=== PATIENT | male | born 1945 | race Caucasian/White ===

== ENCOUNTER → 2016-11-17 | Outpatient (CLI) | payer OTHER | LOC: FLAB 12:35 | PROVIDERS: ATTEND Family Medicine | DX: R05 Cough (principal); I25.10 Atherosclerotic heart disease of native coronary artery without angina pectoris ==

== ENCOUNTER 2017-06-04 07:52 | Emergency (ER) | payer OTHER ==
--- NOTE | 2017-06-04 08:23 | EDPHY ---
General Narrative: CHIEF COMPLAINT: Cold, shaking, weakness HISTORY OF PRESENT ILLNESS: Patient complains of sudden onset of feeling cold, shaking and weakness. This started abruptly around 4:30 a.m.. It woke him from sleep. It lasted for several minutes and has improved. He had no chest pain during this. He did have some shortness of breath. He has had a cough and runny nose this week. No new abdominal pain for the patient. No urinary complaints. No constipation. No diarrhea. No bloody stools or emesis. No trauma or injury. No headache. Did not taking medications for this. No other associated complaints or modifying factors. REVIEW OF SYSTEMS: Ten systems reviewed and are negative unless otherwise noted in the HPI PCP: Dr. Stoddard SPECIALISTS: Dr. Roxanne Velasquez PAST MEDICAL HISTORY: AFib, CAD, dyslipidemia, GERD PAST SURGICAL HISTORY: PCI with stent placement, endoscopy, partial gastrectomy with bypass SOCIAL HISTORY: Nonsmoker. No alcohol use. Retired. Lives independently with his spouse FAMILY HISTORY: Noncontributory EXAMINATION General Appearance: Alert, no distress. No tremor shaking Head: normocephalic, atraumatic Eyes: Pupils equal and round, no conjunctival pallor or injection ENT, Mouth: Mucous membranes moist. Airway is widely patent. No erythema or edema. Neck: Normal inspection, supple, non-tender. Midline trachea. Respiratory: Mild rhonchi. No wheezing. No crackles. No diminishment. No retractions or distress Cardiovascular: Regular rate and rhythm. Low-grade systolic murmur. Gastrointestinal: Abdomen is soft and nontender. No tympany. No rigidity. Nonacute abdomen. Back: non-tender, no bony abnormalities Neurological: A&O, nonfocal, normal gait. Strength symmetric Skin: Warm and dry, no rash. No petechiae or purpura. No cellulitis. Extremities: Nontender, no pedal edema Psychiatric: Mood and affect normal DIFFERENTIAL DIAGNOSES: Including but not limited to pneumonia, influenza, urinary tract infection, weakness, dehydration MDM: 8:20 a.m. Shaking, weakness and chills with no clear etiology. Patient's vital signs are within normal limits. He is not tachycardic, tachypneic or febrile. He is not hypoxic. He does report recent cough and runny nose throughout the week. I have ordered laboratory studies, influenza test, EKG due to weakness. Chest x- ray has also been ordered to rule out pneumonia. He is in no acute distress. 8:50 a.m. Case discussed with Dr. Herrera. 9:30 a.m. Laboratories thus far suggest viral etiology. There is no leukocytosis. Chest x-ray as read by me reveals no definite pneumonia. Influenza test is pending. 10:10 a.m. Patient re-evaluated. Resting comfortably in no acute distress. Vital signs remained stable. I discussed laboratory studies. 10:15 a.m. Chest x-ray has been read as negative by radiologist. Still awaiting a urine sample from the patient 11:25 a.m. UA is negative. Patient re-evaluated. He is resting comfortably in no acute distress. Vital signs remained stable. Given the sudden shaking chill, there is concern for the possibility of early pneumonia, although this is not yet appreciated on chest x-ray. This clinically can lag. I discussed outpatient therapy with empiric coverage with Augmentin and doxycycline. Given his use of sotalol, I want to avoid macrolides and fluoroquinolones. I discussed this medication combination with the pharmacist and they agree that there is no concern for QT prolongation. I discussed this with the patient, and he and his spouse are comfortable with this plan. He is discharged home stable condition. SUPERVISION: Patient was independently examined, but I discussed the case with my secondary supervising physician Dr. Herrera - Diagnostics Imaging Results: Imaging Impressions Chest X-Ray 06/04/17 08:23 Impression: No acute findings in the chest. - History Smoking Status: Former smoker - Objective Vital Signs: Initial Vital Signs Temperature (C) 98.1 F 06/04/17 07:55 Heart Rate 97 06/04/17 07:55 Respiratory Rate 16 06/04/17 07:55 Blood Pressure 133/86 H 06/04/17 07:55 O2 Delivery Mode Room Air Allergies/Adverse Reactions: No Known Allergies Allergy (Unverified 06/04/17 08:04) Home Medications: Medication Instructions Recorded Cholecalciferol Vit D3 [Vitamin D3 2,000 units PO DAILY 04/14/11 2000 units] Folic Acid 0.8 mg PO DAILY 04/14/11 Hydrocortisone 1% [Hydrocortisone 1 emilie TP DAILY PRN 04/14/11 1% cream (*)] Tretinoin [RETIN-A] 1 emilie TP DAILY 04/14/11 Dabigatran Etexilate Mesyl 150 mg PO BID 05/09/13 [Pradaxa 150 MG (*)] Lovastatin 20 mg PO DAILY 05/09/13 [place]-3 Fatty Acids [Fish Oil 1000 2,000 mg PO DAILY 05/09/13 mg (*)] metroNIDAZOLE 1% [Noritate 1% Cr 1 emilie TP DAILY 05/09/13 (RX)] Clopidogrel Bisulfate [Clopidogrel] 75 mg PO DAILY 12/11/13 Herbals/Supplements -Info Only 1 ea PO DAILY 12/11/13 Multivitamins [Multivitamin (*)] 1 each PO Q2D 12/11/13 Aspirin 81 mg PO DAILY 01/15/16 Fluorometholone 01/15/16 Sotalol HCl [Betapace 80 MG (*)] 160 mg PO BID 01/15/16 Amoxicillin/Clavulanate Pot 875 mg PO BID #14 tab 06/04/17 [Augmentin 875 MG TAB (*)] Doxycycline Hyclate 100 mg PO BID #14 tablet 06/04/17 Laboratory Results: Laboratory Results 06/04/17 08:50 06/04/17 08:50 06/04/17 06/04/17 06/04/17 10:49 09:09 08:50 WBC RBC Hgb Hct MCV MCH MCHC RDW Plt Count MPV Neut % (Auto) Lymph % (Auto) [place] % (Auto) Eos % (Auto) Baso % (Auto) Nucleat RBC Rel Count Absolute Neuts (auto) Absolute Lymphs (auto) Absolute Monos (auto) Absolute Eos (auto) Absolute Basos (auto) Absolute Nucleated RBC Immature Gran % Immature Gran # PT INR APTT Sodium 147 mEq/L H mEq/L (134-144) Potassium 4.5 mEq/L mEq/L (3.5-5.2) Chloride 110 mEq/L mEq/L (97-110) Carbon Dioxide 19 mEq/l L mEq/l (22-31) Anion Gap 18 mEq/L H mEq/L (8-16) BUN 33 mg/dL H mg/dL (7-23) Creatinine 1.1 mg/dL mg/dL (0.7-1.3) Estimated GFR > 60 Glucose 139 mg/dL H mg/dL (70-100) Calcium 10.5 mg/dL H mg/dL (8.5-10.4) Total Bilirubin 1.0 mg/dL mg/dL (0.1-1.4) Conjugated Bilirubin 0.3 mg/dL mg/dL (0.0-0.5) Unconjugated Bilirubin 0.7 mg/dL mg/dL (0.0-1.1) AST 28 IU/L IU/L (17-59) ALT 35 IU/L IU/L (21-72) Alkaline Phosphatase 68 IU/L IU/L (38-126) Total Protein 7.8 g/dL g/dL (6.3-8.2) Albumin 4.5 g/dL g/dL (3.5-5.0) Lipase 67 IU/L IU/L (23-300) Urine Color YELLOW Urine Appearance CLEAR Urine pH 5.0 (5.0-7.5) Ur Specific [place] 1.015 (1.002-1.030) Urine Protein NEGATIVE (NEGATIVE) Urine Ketones NEGATIVE (NEGATIVE) Urine Blood NEGATIVE (NEGATIVE) Urine Nitrate NEGATIVE (NEGATIVE) Urine Bilirubin NEGATIVE (NEGATIVE) Urine Urobilinogen NEGATIVE EU EU (0.2-1.0) Ur Leukocyte Esterase NEGATIVE (NEGATIVE) Urine RBC NONE SEEN /hpf /hpf (0-3) Urine WBC 1-3 /hpf /hpf (0-3) Ur Epithelial Cells NONE SEEN /lpf /lpf (NONE-1+) Urine Mucus TRACE /lpf /lpf (NONE-1+) Urine Glucose NEGATIVE (NEGATIVE) Nasal Influenza A PCR NEGATIVE FOR FLU A (NEGATIVE) Nasal Influenza B PCR NEGATIVE FOR FLU B (NEGATIVE) 06/04/17 06/04/17 08:50 08:50 WBC 5.63 10^3/uL 10^3/uL (3.80-9.50) RBC 4.37 10^6/uL L 10^6/uL (4.40-6.38) Hgb 15.7 g/dL g/dL (13.7-17.5) Hct 42.8 % % (40.0-51.0) MCV 97.9 fL fL (81.5-99.8) MCH 35.9 pg H pg (27.9-34.1) MCHC 36.7 g/dL g/dL (32.4-36.7) RDW 12.7 % % (11.5-15.2) Plt Count 141 10^3/uL L 10^3/uL (150-400) MPV 10.7 fL fL (8.7-11.7) Neut % (Auto) 87.4 % H % (39.3-74.2) Lymph % (Auto) 8.5 % L % (15.0-45.0) [place] % (Auto) 1.1 % L % (4.5-13.0) Eos % (Auto) 1.8 % % (0.6-7.6) Baso % (Auto) 0.5 % % (0.3-1.7) Nucleat RBC Rel Count 0.0 % % (0.0-0.2) Absolute Neuts (auto) 4.92 10^3/uL 10^3/uL (1.70-6.50) Absolute Lymphs (auto) 0.48 10^3/uL L 10^3/uL (1.00-3.00) Absolute Monos (auto) 0.06 10^3/uL L 10^3/uL (0.30-0.80) Absolute Eos (auto) 0.10 10^3/uL 10^3/uL (0.03-0.40) Absolute Basos (auto) 0.03 10^3/uL 10^3/uL (0.02-0.10) Absolute Nucleated RBC 0.00 10^3/uL 10^3/uL (0-0.01) Immature Gran % 0.7 % % (0.0-1.1) Immature Gran # 0.04 10^3/uL 10^3/uL (0.00-0.10) PT 18.3 SEC H SEC (12.0-15.0) INR 1.50 H (0.83-1.16) APTT 34.9 SEC SEC (23.0-38.0) Sodium Potassium Chloride Carbon Dioxide Anion Gap BUN Creatinine Estimated GFR Glucose Calcium Total Bilirubin Conjugated Bilirubin Unconjugated Bilirubin AST ALT Alkaline Phosphatase Total Protein Albumin Lipase Urine Color Urine Appearance Urine pH Ur Specific [place] Urine Protein Urine Ketones Urine Blood Urine Nitrate Urine Bilirubin Urine Urobilinogen Ur Leukocyte Esterase Urine RBC Urine WBC Ur Epithelial Cells Urine Mucus Urine Glucose Nasal Influenza A PCR Nasal Influenza B PCR Departure - Departure Disposition: Home, Routine, Self-Care Clinical Impression: Cough Condition: Good Instructions: Acute Bronchitis (ED), Acute Cough (ED) Additional Instructions: 1. Medications as prescribed to completion 2. Contact primary care physician Tuesday morning for outpatient follow-up 3. ED precautions as discussed Referrals: NARDA STODDARD [Primary Care Provider] - As per Instructions Prescriptions: Amoxicillin/Clavulanate Pot [Augmentin 875 MG TAB (*)] 875 mg PO BID #14 tab Doxycycline Hyclate 100 mg PO BID #14 tablet
[2017-06-04 09:00] LABS: % IMMATURE GRANULYOCYTES 0.7 % (0.0-1.1); ABSOLUTE IMMATURE GRANULOCYTES 0.04 10^3/uL (0.00-0.10); ADD DIFF? NO; ADD MORPH? NO; ADD SCAN? NO; ATYPICAL LYMPHOCYTE FLAG 0 (0-99); FRAGMENT RBC FLAG 0 (0-99); HEMATOCRIT 42.8 % (40.0-51.0); HEMOGLOBIN 15.7 g/dL (13.7-17.5); LEFT SHIFT FLG 0 (0-99); LIPEMIA HEMOLYSIS FLAG 90 (0-99); MEAN CELL HEMOGLOBIN 35.9 pg (27.9-34.1); MEAN CELL HEMOGLOBIN CONCENTR. 36.7 g/dL (32.4-36.7); MEAN CELL VOLUME 97.9 fL (81.5-99.8); MEAN PLATELET VOLUME 10.7 fL (8.7-11.7); PLATELET CLUMPS FLAG 0 (0-99); PLATELET COUNT 141 10^3/uL (150-400); RED BLOOD CELL COUNT 4.37 10^6/uL (4.40-6.38); RED CELL DISTRIBUTION WIDTH 12.7 % (11.5-15.2)
--- NOTE | 2017-06-04 09:01 | CPEKG ---
Heart Rate: 85 RR Interval: 706 P-R Interval: 164 QRSD Interval: 96 QT Interval: 384 QTC Interval: 457 P [place]: 74 QRS [place]: 71 T Wave [place]: 20 EKG Severity - NORMAL ECG - EKG Impression: SINUS RHYTHM Electronically Signed By: Tevin Herrera 04-Jun-2017 15:22:51
[2017-06-04 09:14] LABS: APTT 34.9 SEC (23.0-38.0); INR 1.5 (0.83-1.16); PROTIME(PATIENT) 18.3 SEC (12.0-15.0)
[2017-06-04 09:23] LABS: ALANINE AMINOTRANSFERASE 35 IU/L (21-72); ALBUMIN 4.5 g/dL (3.5-5.0); ALKALINE PHOSPHATASE 68 IU/L (38-126); ANION GAP 18 mEq/L (8-16); ASPARTATE AMINOTRANSFERASE 28 IU/L (17-59); BILIRUBIN-CONJUGATED 0.3 mg/dL (0.0-0.5); BILIRUBIN-UNCONJUGATED 0.7 mg/dL (0.0-1.1); CALCIUM 10.5 mg/dL (8.5-10.4); CARBON DIOXIDE 19 mEq/l (22-31); CHLORIDE 110 mEq/L (97-110); CREATININE 1.1 mg/dL (0.7-1.3); GLOMERULAR FILTRATION RATE > 60; GLUCOSE 139 mg/dL (70-100); POTASSIUM 4.5 mEq/L (3.5-5.2); SODIUM 147 mEq/L (134-144); TOTAL PROTEIN 7.8 g/dL (6.3-8.2)
[2017-06-04 10:52] VITALS: RESP 18
[2017-06-04 11:00] LABS: COLOR YELLOW; LEUKOCYTE ESTERASE,URINE NEGATIVE (NEGATIVE); NITRITE,URINE NEGATIVE (NEGATIVE)
[2017-06-04 11:04] LABS: MUCUS TRACE /lpf (NONE-1+)
[2017-06-04 11:09] LABS: RBC,URINE NONE SEEN /hpf (0-3)
[2017-06-04 11:55] VITALS: BP 109/74; PULSE 79; TEMP 98.2; O2SAT 92
== END 2017-06-04 11:57 | disposition home or self-care (01) ==
DX: R05 Cough (principal); I25.10 Atherosclerotic heart disease of native coronary artery without angina pectoris; Z87.891 Personal history of nicotine dependence; Z79.82 Long term (current) use of aspirin

== ENCOUNTER → 2018-02-16 | Outpatient (CLI) | payer OTHER | LOC: BHFA 14:00 | PROVIDERS: ATTEND Internal Medicine Cardiovascular Disease | DX: I48.91 Unspecified atrial fibrillation (principal) ==

== ENCOUNTER 2018-03-31 09:11 | Day surgery (SDC) | payer OTHER ==
[2018-03-31] MEDS ORDERED: MIDAZOLAM 2 MG/2 ML VIAL IVP ONE (09:14)
[2018-03-31] MEDS ORDERED: BENZOCAINE UNIT DOSE SPRAY HURRICAINE MM ONE (09:14)
[2018-03-31] MEDS ORDERED: fentaNYL 100 MCG/2 ML INJ IVP ONE (09:14)
[2018-03-31] MEDS ORDERED: NS 500 ML IV ONE (09:14)
[2018-03-31] MEDS ORDERED: ATROPINE SULFATE 1 MG/10 ML SYR IVP ONE (09:14)
[2018-03-31] MEDS ORDERED: NALOXONE HCL 0.4 MG/ML INJ IVP PRN (09:55)
--- NOTE | 2018-03-31 09:55 | PDANEPAE ---
ANE Past Medical History - Pulmonary History Hx Oxygen in Use at Home: No Hx Sleep Apnea: No - Endocrine History Hx Diabetes: No - Chronic Pain History Chronic Pain: No ANE Review of Systems Review of Systems: ANE Patient History - Allergies Allergies/Adverse Reactions: No Known Allergies Allergy (Unverified 06/04/17 08:04) - Home Medications Home Medications: Cholecalciferol Vit D3 [Vitamin D3 2000 units] 2,000 units PO DAILY 04/14/11 [ Last Taken 01/14/16 09:00] Folic Acid 0.4 mg PO DAILY 04/14/11 [Last Taken 01/14/16 09:00] Hydrocortisone 1% [Hydrocortisone 1% cream (*)] 1 emilie TP DAILY PRN 04/14/11 [ Last Taken 05/03/13] Tretinoin [RETIN-A] 1 emilie TP DAILY 04/14/11 [Last Taken 01/14/16 09:00] Dabigatran Etexilate Mesyl [Pradaxa 150 MG (*)] 150 mg PO BID 05/09/13 [Last Taken 01/15/16 06:30] Lovastatin 20 mg PO DAILY 05/09/13 [Last Taken 01/14/16 09:00] [place]-3 Fatty Acids [Fish Oil 1000 mg (*)] 2,000 mg PO DAILY 05/09/13 [Last Taken 01/14/16 09:00] metroNIDAZOLE 1% [Noritate 1% Cr (RX)] 1 emilie TP DAILY 05/09/13 [Last Taken 01/13 09:00] Herbals/Supplements -Info Only 1 ea PO DAILY 12/11/13 [Last Taken 01/14/16 09:00 ] Multivitamins [Multivitamin (*)] 1 each PO Q2D 12/11/13 [Last Taken 01/13/16] Aspirin 81 mg PO DAILY 01/15/16 [Last Taken 01/14/16 09:00] Fluorometholone 1 drop TP BID 01/15/16 [Last Taken 01/13/16] Sotalol HCl [Betapace 80 MG (*)] 120 mg PO DAILY 01/15/16 [Last Taken 01/14/16 18:00] - Smoking Hx Smoking Status: Former smoker ANE Labs/Vital Signs - Vital Signs Height: 175 cm Weight: 75 kg ANE Physical Exam - Airway Neck exam: decreased ROM Mallampati Score: Class 2 Mouth exam: normal dental/mouth exam - Pulmonary Pulmonary: no respiratory distress, no rales or rhonchi, clear to auscultation - Cardiovascular Cardiovascular: irregularly irregular - ASA Status ASA Status: III ANE Anesthesia Plan Anesthesia Plan: GA with mask
[2018-03-31] MEDS ORDERED: PROPOFOL 200 MG/20 ML VIAL ONE (09:58)
[2018-03-31 10:22] LABS: INR 1.55 (0.83-1.16); PROTIME(PATIENT) 18.7 SEC (12.0-15.0)
[2018-03-31] MEDS ORDERED: SODIUM BICARBONATE 50 MEQ/50 ML SYR ONE (10:36)
--- NOTE | 2018-03-31 10:43 | PDGENHP ---
History & Physical Chief Complaint: A-fib History of Present Illness: Pt is a 73 yo, m with a history of PAF who presentes with recurrent A-fib. He has been taking his sotalol and pradaxa but missed one dose of pradaxa 12 days ago. Pertinent Past, Social, Family History: none Relevant Physical Exam: general - A, A, O x 3. lungs - CTA. CV - IRRR, S1, S2 Cardiorespiratory Assessment: Patient presents with recurrent A-fib. Plan for LOLIS/CV
--- NOTE | 2018-03-31 12:14 | CPEKG ---
Test Reason : OPEN Blood Pressure : / mmHG Vent. Rate : 112 BPM Atrial Rate : 192 BPM P-R Int : 057 ms QRS Dur : 097 ms QT Int : 350 ms P-R-T Axes : 000 077 018 degrees QTc Int : 478 ms Atrial fibrillation Multiple ventricular premature complexes Borderline prolonged QT interval Atrial fibrillation has replaced normal sinus rhythm Confirmed by Manish Leo ([id number]) on 03/31/2018 12:13:58 PM Referred By: Confirmed By:Manish Leo
--- NOTE | 2018-03-31 12:15 | CPEKG ---
Test Reason : OPEN Blood Pressure : / mmHG Vent. Rate : 067 BPM Atrial Rate : 067 BPM P-R Int : 180 ms QRS Dur : 105 ms QT Int : 441 ms P-R-T Axes : 072 068 028 degrees QTc Int : 466 ms Sinus rhythm Sinus rhythm has replaced atrial fibrillation noted on prior ECG Confirmed by Manish Leo ([id number]) on 03/31/2018 12:15:10 PM Referred By: Confirmed By:Manish Leo
== END 2018-03-31 12:44 | disposition home or self-care (01) ==
LOC: FCATH 09:11
PROVIDERS: ATTEND Internal Medicine Cardiovascular Disease
PROC: 5A2204Z Restoration of Cardiac Rhythm, Single (ICD-10-PCS; principal; 2018-03-31)
DX: I48.0 Paroxysmal atrial fibrillation (principal); Z79.01 Long term (current) use of anticoagulants; Z87.891 Personal history of nicotine dependence
CPT/HCPCS: J0461; J2250; J2704

== ENCOUNTER → 2018-11-16 | Day surgery (SDC) | payer OTHER ==
[~2018-11-16] MED LIST: ATROPINE SULFATE 1 MG/10 ML SYR IVP ONE; LIDOCAINE 2% 2 ML INJ ONE; MIDAZOLAM 2 MG/2 ML VIAL IVP ONE; NS 500 ML IV ONE; PROPOFOL 200 MG/20 ML VIAL ONE; fentaNYL 100 MCG/2 ML INJ IVP ONE
--- NOTE | 2018-11-16 10:47 | PDANEPAE ---
ANE Past Medical History - Cardiovascular History Hx Arrhythmias: Yes Hx Palpitations: Yes - Pulmonary History Hx COPD: No Hx Asthma/Reactive Airway Disease: No Hx Oxygen in Use at Home: No Hx Sleep Apnea: No - Neurologic History Hx Cerebrovascular Accident: No Hx Seizures: No - Endocrine History Hx Diabetes: No - Renal History Hx Renal Disorders: No - Liver History Hx Hepatic Disorders: No - Neurological & Psychiatric Hx Hx Neurological and Psychiatric Disorders: No - GI History GERD: no - Chronic Pain History Chronic Pain: No ANE Review of Systems Review of Systems: ANE Patient History - Allergies Allergies/Adverse Reactions: No Known Allergies Allergy (Unverified 06/04/17 08:04) - Home Medications Home Medications: Cholecalciferol Vit D3 [Vitamin D3 2000 units] 2,000 units PO DAILY 04/14/11 [ Last Taken 03/30/18 08:00] Folic Acid 0.4 mg PO DAILY 04/14/11 [Last Taken 03/30/18 08:00] Hydrocortisone 1% [Hydrocortisone 1% cream (*)] 1 emilie TP DAILY PRN 04/14/11 [ Last Taken 05/03/13] Tretinoin [RETIN-A] 1 emilie TP DAILY 04/14/11 [Last Taken 03/30/18 08:00] Dabigatran Etexilate Mesyl [Pradaxa 150 MG (*)] 150 mg PO BID 05/09/13 [Last Taken 01/15/16 06:30] Lovastatin 20 mg PO DAILY 05/09/13 [Last Taken 03/30/18 18:00] [place]-3 Fatty Acids [Fish Oil 1000 mg (*)] 2,400 mg PO DAILY 05/09/13 [Last Taken 03/31/18 06:30] metroNIDAZOLE 1% [Noritate 1% Cr (RX)] 1 emilie TP DAILY 05/09/13 [Last Taken 03/30 08:00] Herbals/Supplements -Info Only 1 ea PO DAILY 12/11/13 [Last Taken 03/30/18 08:00 ] Multivitamins [Multivitamin (*)] 1 each PO DAILY 12/11/13 [Last Taken 03/30/18 08:00] Aspirin 81 mg PO DAILY 01/15/16 [Last Taken 03/31/18 07:30] Sotalol HCl [Betapace 80 MG (*)] 160 mg PO BID 01/15/16 [Last Taken 03/31/18 07: 30] Gemfibrozil 600 mg PO BID 03/31/18 [Last Taken 03/30/18 18:00] - Smoking Hx Smoking Status: Former smoker ANE Labs/Vital Signs - Labs Result Diagrams: 11/16/18 10:20 ANE Physical Exam - Airway Neck exam: FROM Mallampati Score: Class 2 Mouth exam: normal dental/mouth exam - Pulmonary Pulmonary: no respiratory distress, no rales or rhonchi, clear to auscultation - Cardiovascular Cardiovascular: no murmur, rub, or gallop, irregularly irregular - ASA Status ASA Status: III ANE Anesthesia Plan Anesthesia Plan: GA with mask Total IV Anesthesia: Yes
--- NOTE | 2018-11-16 10:48 | POSTANESTH ---
Post Anesthetic Evaluation Cardiovascular Status: Normal, Stable Respiratory Status: Normal, Stable Level of Consciousness/Mental Status: Can Participate in Eval Pain Control: Adequate, Prn Tx Ordered Nausea/Vomiting Control: Adequate, Prn Tx Ordered Complications Possibly Related to Anesthesia: None Noted
[2018-11-16 11:34] LABS: INR 1.72 (0.83-1.16); PROTIME(PATIENT) 19.4 SEC (12.0-15.0)
--- NOTE | 2018-11-16 12:02 | CPIP ---
[f rep st] INVASIVE CARDIAC PROCEDURE DATE OF PROCEDURE: 11/16/2018 PROCEDURE: DC cardioversion. INDICATION: Atrial fibrillation. CONSENT: Signed and in front of chart. ANESTHESIA: Per anesthesia. ANTICOAGULATION: Patient had been anticoagulated with Pradaxa for greater than 1 month period of ricky e. SPECIFICS: 1. Pads placed in anterior posterior position. 2. 150 joules synchronized delivered x1 with mu-ism of normal sinus rhythm. COMPLICATIONS: None. CONCLUSIONS: 1. Status post successful DC cardioversion of atrial fibrillation. /[id number]/MODL
--- NOTE | 2018-11-17 14:39 | CPEKG ---
Test Reason : OPEN Blood Pressure : / mmHG Vent. Rate : 126 BPM Atrial Rate : 300 BPM P-R Int : 080 ms QRS Dur : 093 ms QT Int : 345 ms P-R-T Axes : 000 090 043 degrees QTc Int : 500 ms Atrial fibrillation Borderline right axis deviation Prolonged QT interval Confirmed by Manish Oliveira ([id number]) on 11/17/2018 2:39:24 PM Referred By: Viraj Morales Confirmed By:Manish Oliveira
--- NOTE | 2018-11-17 14:42 | CPEKG ---
Test Reason : OPEN Blood Pressure : / mmHG Vent. Rate : 061 BPM Atrial Rate : 061 BPM P-R Int : 171 ms QRS Dur : 100 ms QT Int : 459 ms P-R-T Axes : 073 071 051 degrees QTc Int : 463 ms Sinus rhythm Confirmed by Manish Oliveira ([id number] on 11/17/2018 2:41:46 PM Referred By: Viraj Morales Confirmed By:Manish Oliveira
== END | disposition home or self-care (01) ==
LOC: FCATH 09:57
PROVIDERS: ATTEND Internal Medicine Cardiovascular Disease
PROC: 5A2204Z Restoration of Cardiac Rhythm, Single (ICD-10-PCS; principal; 2018-11-16)
DX: I48.0 Paroxysmal atrial fibrillation (principal); Z79.01 Long term (current) use of anticoagulants; I25.10 Atherosclerotic heart disease of native coronary artery without angina pectoris; Z95.5 Presence of coronary angioplasty implant and graft; I10 Essential (primary) hypertension; E78.5 Hyperlipidemia, unspecified
CPT/HCPCS: J2704